=== PATIENT | female | born 1980 | race Caucasian/White ===

== ENCOUNTER 2022-10-29 04:42 | Day surgery (SDC) | payer OTHER ==
[2022-10-25 13:56] VITALS: BMI 22.1
[2022-10-29] MEDS ORDERED: ceFAZolin SODIUM 1 GM VIAL IVPB ONE (14:28)
[2022-10-29] MEDS ORDERED: oxyCODONE HCL 5 MG TABLET PO PRN (15:11)
[2022-10-29] MEDS ORDERED: LACTATED RINGERS SOLUTION 1,000 ML IV SCH (15:15)
[2022-10-29 16:54] VITALS: RESP 18
[2022-10-29 18:15] VITALS: BP 114/56; PULSE 78; TEMP 97.8
== END 2022-10-29 18:05 | disposition home or self-care (01) ==
LOC: JASU-SURG 04:42
PROVIDERS: ATTEND Obstetrics & Gynecology
PROC: 0UPD8HZ Removal of Contraceptive Device from Uterus and Cervix, Via Natural or Artificial Opening Endoscopic (ICD-10-PCS; principal; 2022-10-29 13:00)
PROC: 0UB98ZZ Excision of Uterus, Via Natural or Artificial Opening Endoscopic (ICD-10-PCS; 2022-10-29 13:00)
DX: T83.89XA Other specified complication of genitourinary prosthetic devices, implants and grafts, initial encounter (principal); N84.0 Polyp of corpus uteri
CPT/HCPCS: 81025; 86850; 86900; 86901; 88300-TC; 88305-TC; 94760